=== PATIENT | female | born 1975 | race African-American/Black ===

== ENCOUNTER 2019-11-03 04:24 | Emergency (ER) | payer OTHER ==
[~2019-11-03] VITALS: Ht 154.9 cm; Wt 59.0 kg
[2019-11-03 04:27] VITALS: BP 109/58
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
[2019-11-03] MEDS ORDERED: L.E.T SOLUTION TP ONE ×2 (04:57→05:00)
[2019-11-03] MEDS ORDERED: PLEASE ENTER ALLERGIES MC SCH (05:00)
--- NOTE | 2019-11-03 05:02 | NUR ---
pt refused CT.
--- NOTE | 2019-11-03 05:03 | NUR ---
PT MEDICATED PER MAR, PT AGREES TO HAVE WOUND CLEANED AND STERI STRIPS APPLIED, PT REFUSING ALL OTHER INTERVENTIONS. PA UPDATED REGARDING PT REFUSING CT AND XRAYS, ALL OTHER EXAMS AND INTERVENTIONS
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
== END 2019-11-03 05:29 ==
LOC: ED 05:23
DX: S01.81XA Laceration without foreign body of other part of head, initial encounter (principal); S50.01XA Contusion of right elbow, initial encounter; S60.222A Contusion of left hand, initial encounter; S29.012A Strain of muscle and tendon of back wall of thorax, initial encounter; Y08.89XA Assault by other specified means, initial encounter; Y93.89 Activity, other specified; Y92.098 Other place in other non-institutional residence as the place of occurrence of the external cause; Y99.8 Other external cause status
CPT/HCPCS: 99283